=== PATIENT | female | born 2000 | race Caucasian/White ===

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

== ENCOUNTER 2019-05-22 06:33 | Emergency (ER) | payer OTHER ==
[2019-05-22] MEDS ORDERED: NS 0.9% 1000 ML** 1,000 ML IV ONE (07:19)
--- NOTE | 2019-05-22 07:20 | ED ---
Complex/Multi-Sys Presentation - HPI Summary HPI Summary: This patient is a 19 year old F presenting to [facility] with a chief complaint of epigastric tightness and itchiness since 0400 today. Pt says she felt fine okay , but attributed that to little sleep the night before. She reports slight upset stomach on 05/21/19. Last night she had a bagel. Pt also reports she woke up with nausea, and threw up. She has a BURROUGHS, lightheaded, chills and painful dry heaving. Pt had leftover Zofran, and took one and it improved her symptoms. She denies abdominal pain. Pt has PMHx Soumya Dailey tear, constipation and chronic nausea and vomiting, depression, ADHD. She has no new dosage of medicine recently. She has a FHx of chronic nausea and vomiting. Pt has lost 26 lbs in last 3 month. She went into [facility] and was told her electrolytes/ potassium was low. Symptoms aggravated by deep breaths. She also reports O2 feels thicker. She says she feels more conscious about breathing. - History Of Current Complaint Chief Complaint: EDNauseaVomitDiarrh Time Seen by Provider: 05/22/19 06:59 Hx Obtained From: Patient Onset/Duration: Sudden Onset Timing: Hours Severity Currently: None Severity Initially: Mild Location: Pain At: - epigastric Aggravating Factor(s): deep breaths Alleviating Factor(s): Zofran Associated Signs And Symptoms: Positive: Dizziness, Headache, Nausea, Vomiting, Other - Lightheadedness, Chills, Weight Loss. Negative: Abdominal Pain - Allergies/Home Medications Allergies/Adverse Reactions: Allergies Allergy/AdvReac Type Severity Reaction Status Date / Time No Known Allergies Allergy Verified 05/22/19 06:38 Home Medications: Home Medications Sertraline* [Zoloft*] 100 mg PO DAILY 05/22/19 [History Confirmed 05/22/19] PMH/Surg Hx/FS Hx/Imm Hx Endocrine/Hematology History: Denies: Hx Diabetes Respiratory History: Denies: Hx Asthma Sensory History: Denies: Hx Deafness - Cancer History Cancer Type, Location and Year: None - Surgical History Surgery Procedure, Year, and Place: Tonsillectomy. Sinus surgesry. [place] Infectious Disease History: No Infectious Disease History: Denies: Traveled Outside the [place] in Last 30 Days - Family History Known Family History: Positive: Cardiac Disease, Hypertension Family History: Brugada Syndrome - Social History Occupation: Student Lives: Dormitory/Roommates Alcohol Use: Weekly Alcohol Amount: weekends Hx Substance Use: No Substance Use Type: Reports: None Hx Tobacco Use: No Smoking Status (MU): Current Some Day Smoker Type: Smokeless Tobacco Review of Systems Positive: Chills, Fatigue, Other - weight loss Positive: Vomiting, Nausea. Negative: Abdominal Pain Neurological: Other - dizziness Positive: Headache All Other Systems Reviewed And Are Negative: Yes Physical Exam - Summary Physical Exam Summary: Appearance: Well-appearing, Well-nourished, lying in bed comfortably Skin: Warm, dry, no obvious rash Eyes: sclera anicteric, no conjunctival pallor ENT: mucous membranes moist, pharynx appears normal Neck: Supple, nontender Respiratory: Clear to auscultation, no signs of respiratory distress Cardiovascular: Normal S1, S2. No murmurs. Normal distal pulses in tibial and radial bilaterally. Abdomen: Soft, nontender, normal active bowel sounds present Musculoskeletal: Normal, Strength/ROM Intact Neurological: A&Ox3, awake and alert, mentation is normal, speech is fluent and appropriate Psychiatric: affect is normal, does not appear anxious or depressed Triage Information Reviewed: Yes Vital Signs On Initial Exam: Initial Vitals Temp Pulse Resp BP Pulse Ox 97.8 F 78 16 123/93 98 05/22/19 06:35 05/22/19 06:35 05/22/19 06:35 05/22/19 06:35 05/22/19 06:35 Vital Signs Reviewed: Yes Procedures - Sedation Patient Received Moderate/Deep Sedation with Procedure: No Diagnostics - Vital Signs Vital Signs Temp Pulse Resp BP Pulse Ox 05/22/19 06:35 97.8 F 78 16 123/93 98 - Laboratory Result Diagrams: 05/22/19 07:28 05/22/19 07:28 Lab Statement: Any lab studies that have been ordered have been reviewed, and results considered in the medical decision making process. - Radiology CXR Radiology Interpretation Completed By: Radiologist Summary of Radiographic Findings: CXR reveals, per radiologist, IMPRESSION: NO ACTIVE CARDIOPULMONARY DISEASE. ED physician has reviewed this radiology report. - EKG 0640 Cardiac Rate: NL EKG Rhythm: Sinus Rhythm Summary of EKG Findings: EKG at 0640 reveals NSR at 77 BPM, P waves, QRS complex , and T waves are within normal limits, T waves and intervals are normal, no ischemic changes. This is a normal EKG. ED Physician has reviewed and interpreted this EKG. Re-Evaluation - Re-Evaluation First Eval Re-Evaluation Time: 09:26 Comment: Discussed results and plan to discharge with pt. Complex Multi-Symp Course/Dx Course Of Treatment: This patient is a 19 year old F presenting to [facility] with a chief complaint of epigastric tightness and itchiness since 0 today. Pt says she felt fine okay, but acquitted that to little sleep the night before. She reports slight upset stomach on 05/21/19. Last night she had a bagel. Pt also reports she woke up with nausea, and threw up. She has a BURROUGHS, lightheaded, chills and painful dry heaving. Pt had leftover Zofran, and took one and it improved her symptoms. She denies abdominal pain. Pt has PMHx Soumya Dailey tear , constipation and chronic nausea and vomiting, depression, ADHD. She has no new dosage of medicine recently. She has a FHx of chronic nausea and vomiting. Pt has lost 26 lbs in last 3 month. She went into [facility] and was told her electrolytes/potassium was low. Symptoms aggravated by deep breaths. She also reports O2 feels thicker. She says she feels more conscious about breathing. Blood work obtained. MPV is 7.1, and BUN/Creatinine Ratio is 21.4. UA obtained. Urine Ketones are trace. EKG at 0640 reveals NSR at 77 BPM, P waves, QRS complex, and T waves are within normal limits, T waves and intervals are normal, no ischemic changes. This is a normal EKG. ED Physician has reviewed and interpreted this EKG. CXR reveals, per radiologist, IMPRESSION: NO ACTIVE CARDIOPULMONARY DISEASE. ED physician has reviewed this radiology report. In the ED course the patient was given fluids. Patient will be discharged. The patient is agreeable with this plan. - Diagnoses Provider Diagnoses: Nausea & vomiting Discharge ED - Sign-Out/Discharge Documenting (check all that apply): Patient Departure - Discharge - Discharge Plan Condition: Good Disposition: HOME Prescriptions: Ondansetron ODT TAB* [Zofran 4 MG Odt TAB*] 8 mg PO Q6H PRN #12 tab.odt PRN Reason: Nausea Patient Education Materials: Acute Nausea and Vomiting (ED) Forms: *School Release Referrals: [facility] [Outside] - If Needed - Billing Disposition and Condition Condition: GOOD Disposition: Home - Attestation Statements Document Initiated by Scribe: Yes Documenting Scribe: Melani Garner Provider For Whom Scribe is Documenting (Include Credential): Cliff Adler MD Scribe Attestation: Melani Tomas scribed for Cliff Adler MD on 05/24/19 at 1840. Scribe Documentation Reviewed: Yes Provider Attestation: The documentation as recorded by the Melani hudson accurately reflects the service I personally performed and the decisions made by Cliff davies MD Status of Scribe Document: Viewed
[2019-05-22 07:40] LABS: ABS Basophils 0.1 10^3/ul (0-0.2); ABS Eosinophils 0.1 10^3/ul (0-0.6); ABS Lymphocytes 2.6 10^3/ul (1.0-4.8); ABS Monocytes 0.8 10^3/ul (0-0.8); ABS Neutrophils 6.1 10^3/ul (1.5-7.7); Eosinophil % 1.3 %; Hematocrit 39 % (35-47); Hemoglobin 13.6 g/dL (12.0-16.0); Mean Corpuscular HGB Conc 35 g/dL (31-36); Mean Corpuscular Hemoglobin 31 pg (27-31); Mean Corpuscular Volume 88 fL (80-97); Mean Platelet Volume 7.1 fL (7.4-10.4); Platelet Count 423 10^3/uL (150-450); Red Blood Count 4.46 10^6 /uL (3.70-4.87); Red Cell Distribution Width 13 % (10-15); White Blood Count 9.7 10^3/uL (3.5-10.8)
[2019-05-22 07:57] LABS: Urine Appearance Cloudy; Urine Bilirubin Negative (Negative); Urine Blood Negative (Negative); Urine Color Yellow; Urine Glucose Negative (Negative); Urine Ketones Trace (Negative); Urine Nitrite Negative (Negative); Urine Protein Negative (Negative); Urine Specific Gravity 1.019 (1.010-1.030); Urine Urobilinogen Negative (Negative)
[2019-05-22 08:02] LABS: ALT 12 U/L (7-52); AST 17 U/L (13-39); Albumin/Globulin Ratio 1.9 (1-3); Alkaline Phosphatase 85 U/L (34-104); Anion Gap 9 mmol/L (2-11); BUN/Creatinine Ratio 21.4 (8-20); Blood Urea Nitrogen 18 mg/dL (6-24); C Reactive Protein 1.16 mg/L (<8.01); CO2 Carbon Dioxide 27 mmol/L (22-32); Calcium 10.1 mg/dL (8.6-10.3); Chloride 101 mmol/L (101-111); EGFR African American 104.6 (>60); EGFR Non-African American 86.4 (>60); Globulin 2.7 g/dL (2-4); Glucose 95 mg/dL (70-100); Magnesium 2.1 mg/dL (1.9-2.7); Potassium 4.3 mmol/L (3.5-5.0); Sodium 137 mmol/L (135-145); Total Protein 7.7 g/dL (6.4-8.9)
[2019-05-22 08:08] LABS: HCG Pregnancy < 0.60 mIU/mL
[2019-05-22 09:49] VITALS: BP 121/68
== END 2019-05-22 09:44 | disposition home or self-care (01) ==
LOC: ED 06:33
DX: R11.2 Nausea with vomiting, unspecified (principal); F17.200 Nicotine dependence, unspecified, uncomplicated; Z79.899 Other long term (current) drug therapy
CPT/HCPCS: 36415; 71046; 80053; 81003; 83605; 83735; 84702; 85025; 86140; 93005; 96360; 99282

== ENCOUNTER 2019-09-30 21:02 | Emergency (ER) | payer OTHER ==
[2019-09-30] MEDS ORDERED: Ketorolac INJ* 30 MG/ML 1 ML VIAL IM ONE (21:42)
--- NOTE | 2019-09-30 21:46 | UC ---
UC General HPI - HPI Summary HPI Summary: Here with friend. She is a [employer] student. about 4 hours ago developed acute onset of gross bloody urine, extreme pain with urination and lower pack pain more predominantely on the right side. Cannot get comfortable. Has had two episodes of nausea and vomiting in the past hour. Chills. NO fever. Lower abdominal pain. No vaginal discharge. Has an IUD so does not get a period Is interested in STI testing Meds; Reviewed - History of Current Complaint Stated Complaint: URINARY COMPLAINT Time Seen by Provider: 09/30/19 21:25 Hx Last Menstrual Period: iud - Allergy/Home Medications Allergies/Adverse Reactions: Allergies Allergy/AdvReac Type Severity Reaction Status Date / Time No Known Allergies Allergy Verified 05/22/19 06:38 Home Medications: Home Medications ARIPiprazole [Abilify] 2 mg PO DAILY 03/12/18 [History Confirmed 05/22/19] Levonorgestrel (Iud) [Mirena IUD] 20 mcg IU DAILY 06/08/18 [History Confirmed ] Sertraline* [Zoloft*] 100 mg PO DAILY 05/22/19 [History Confirmed 05/22/19] PMH/Surg Hx/FS Hx/Imm Hx Previously Healthy: Yes - Surgical History Surgical History: Yes Surgery Procedure, Year, and Place: Tonsillectomy. Sinus surgesry. [place] - Family History Known Family History: Positive: Cardiac Disease, Hypertension Family History: Brugada Syndrome - Social History Alcohol Use: Weekly Alcohol Amount: weekends Substance Use Type: None Smoking Status (MU): Current Some Day Smoker Type: Smokeless Tobacco - Immunization History Vaccination Up to Date: Yes Review of Systems All Other Systems Reviewed And Are Negative: Yes Gastrointestinal: Positive: Abdominal Pain, Vomiting, Nausea Genitourinary: Positive: Urgency Physical Exam Triage Information Reviewed: Yes Appearance: Other: - uncomfortable Vital Signs Reviewed: Yes Eyes: Positive: Conjunctiva Clear Respiratory: Positive: Lungs clear, Normal breath sounds Cardiovascular: Positive: RRR, No Murmur Abdomen Description: Positive: Other: - suprapubic tenderness, CVA tenderness more prominante on right side Course/Dx - Course Course Of Treatment: This is a 19 yr old with gross hematuria and sided back pain Highly suspicious for a kidney stone and possible infection Could be related to her high calcium - needs further workup and to rule out stone. Discussed we do not have CT scan here to further evaluation her symptoms U/A: gross blood and pyuria Toradol 30 mg IM given prior to discharge Plan Recommend going directly to the ER at [facility] [place] [address] to get evaluated for suspected kidney stone Would recommend they check an ionized calcium to make sure your previously elevated calcium is not related. Ketorlac 30 mg intramuscular was given prior to discharge - Diagnoses Provider Diagnosis: Kidney stone Discharge ED - Sign-Out/Discharge Documenting (check all that apply): Patient Departure All imaging exams completed and their final reports reviewed: No Studies - Discharge Plan Condition: Fair Disposition: HOME-RECOMMEND TO ED Referrals: Adry Mcallister DO [Primary Care Provider] - Additional Instructions: Recommend going directly to the ER at [facility] [address] to get evaluated for suspected kidney stone Would recommend they check an ionized calcium to make sure your previously elevated calcium is not related. Ketorlac 30 mg intramuscular was given prior to discharge - Billing Disposition and Condition Condition: FAIR Disposition: Home-Recommend to ED
[2019-09-30 22:04] VITALS: BP 120/59
== END 2019-09-30 22:05 | disposition home health service (06) ==
LOC: UCEAST 21:02
DX: N20.0 Calculus of kidney (principal); F17.290 Nicotine dependence, other tobacco product, uncomplicated
CPT/HCPCS: 81003; 84702; 87077; 87086; 87186; 96372; 99212; G0463; J1885

== ENCOUNTER 2019-09-30 22:26 | Emergency (ER) | payer OTHER ==
[2019-09-30 23:25] LABS: ABS Basophils 0.1 10^3/ul (0-0.2); ABS Eosinophils 0.2 10^3/ul (0-0.6); ABS Lymphocytes 2.7 10^3/ul (1.0-4.8); ABS Monocytes 1.2 10^3/ul (0-0.8); ABS Neutrophils 11.9 10^3/ul (1.5-7.7); Hematocrit 35 % (35-47); Hemoglobin 11.9 g/dL (12.0-16.0); Mean Corpuscular HGB Conc 34 g/dL (31-36); Mean Corpuscular Hemoglobin 30 pg (27-31); Mean Corpuscular Volume 89 fL (80-97); Mean Platelet Volume 7.2 fL (7.4-10.4); Platelet Count 383 10^3/uL (150-450); Red Blood Count 3.97 10^6 /uL (3.70-4.87); Red Cell Distribution Width 14 % (10-15)
[2019-09-30] MEDS ORDERED: Morphine 4 MG/ML VIAL (1 ml) 4 MG/ML VIAL IV ONE (23:25)
[2019-09-30] MEDS ORDERED: NS 0.9% 1000 ML** 1,000 ML IV ONE (23:25)
--- NOTE | 2019-09-30 23:28 | ED ---
GI/ HPI - HPI Summary HPI Summary: 19 year old female presents with flank pain today. States she's been having UTI symptoms for the past day. She admits to urgency, frequency and dysuria. She's been having hematuria. States that her abdominal pain greatest in the lower abdomen. Denies any history of UTIs. States she has history of chronic sinusitis and was on Augmentin last month. States she is normally resistant to Augmentin. He states that she is having intermittent vomiting of blood and blood in her stool that is currently being worked up before. She states that 2 years ago they thought she had a kidney stones as she had blood in her urine. - History of Current Complaint Chief Complaint: EDFlankPain Time Seen by Provider: 09/30/19 23:14 Stated Complaint: BLOOD IN URINE BODY ACHE Hx Last Menstrual Period: iud Pain Intensity: 7 - Allergy/Home Medications Allergies/Adverse Reactions: Allergies Allergy/AdvReac Type Severity Reaction Status Date / Time No Known Allergies Allergy Verified 09/30/19 23:40 Home Medications: Home Medications ARIPiprazole [Abilify] 2 mg PO DAILY 03/12/18 [History Confirmed 10/01/19] Levonorgestrel (Iud) [Mirena IUD] 20 mcg IU DAILY 06/08/18 [History Confirmed ] Sertraline* [Zoloft*] 100 mg PO DAILY 05/22/19 [History Confirmed 09/30/19] Dextroamphetamine/Amphetamine [Adderall 10 mg-] 1 tab PO DAILY 09/30/19 [ History Confirmed 09/30/19] Spironolactone [Aldactone 100 MG-] 200 mg PO DAILY 09/30/19 [History Confirmed 09/30/19] traZODone TAB* [Desyrel TAB*] 50 mg PO BEDTIME 09/30/19 [History Confirmed 09/29] Amphetamine MIXED SALT TAB* [Adderall TAB*] 10 mg PO BID PRN 10/01/19 [History Confirmed 10/01/19] Phenazopyridine 200 mg (NF) [Pyridium 200 MG tab *] 200 mg PO TID #5 tab [Rx] Sulfamethox/Trimethoprim DS* [Bactrim DS 800/160 TAB*] 1 tab PO BID #13 tab 03/ 09/20 [Rx] PMH/Surg Hx/FS Hx/Imm Hx Endocrine/Hematology History: Denies: Hx Diabetes Respiratory History: Denies: Hx Asthma Sensory History: Denies: Hx Deafness - Cancer History Cancer Type, Location and Year: None - Surgical History Surgery Procedure, Year, and Place: Tonsillectomy. Sinus surgesry. [place] Infectious Disease History: No Infectious Disease History: Denies: Traveled Outside the [place] in Last 30 Days - Family History Known Family History: Positive: Cardiac Disease, Hypertension Family History: Brugada Syndrome - Social History Alcohol Use: Weekly Alcohol Amount: weekends Hx Substance Use: No Substance Use Type: Reports: None Substance Use Comment - Amount & Last Used: occasionally Hx Tobacco Use: No Smoking Status (MU): Current Some Day Smoker Type: Smokeless Tobacco Review of Systems Negative: Fever Negative: Chest Pain Negative: Shortness Of Breath Positive: Abdominal Pain, Vomiting, Nausea. Negative: Diarrhea Positive: dysuria, frequency, flank pain All Other Systems Reviewed And Are Negative: Yes Physical Exam Triage Information Reviewed: Yes Vital Signs On Initial Exam: Initial Vitals Temp Pulse Resp BP Pulse Ox 98.1 F 75 15 127/73 100 09/30/19 22:29 09/30/19 22:29 09/30/19 22:29 09/30/19 22:29 09/30/19 22:29 Vital Signs Reviewed: Yes Appearance: Positive: Well-Appearing Skin: Positive: Warm, Dry Head/Face: Positive: Normal Head/Face Inspection Eyes: Positive: Normal, Conjunctiva Clear ENT: Positive: Pharynx normal Respiratory/Lung Sounds: Positive: Clear to Auscultation, Breath Sounds Present Cardiovascular: Positive: Normal, RRR Abdomen Description: Positive: Soft, CVA Tenderness (R), CVA Tenderness (L), Other: - diffuse tenderness greatest suprapubic Bowel Sounds: Positive: Present Musculoskeletal: Positive: Normal Neurological: Positive: Normal Psychiatric: Positive: Normal Procedures - Sedation Patient Received Moderate/Deep Sedation with Procedure: No Diagnostics - Vital Signs Vital Signs Temp Pulse Resp BP Pulse Ox 09/30/19 22:29 98.1 F 75 15 127/73 100 - Laboratory Lab Results: Lab Results 09/30/19 Range/Units 23:18 WBC 16.0 H (3.5-10.8) 10^3/uL RBC 3.97 (3.70-4.87) 10^6 /uL Hgb 11.9 L (12.0-16.0) g/dL Hct 35 (35-47) % MCV 89 (80-97) fL MCH 30 (27-31) pg MCHC 34 (31-36) g/dL RDW 14 (10-15) % Plt Count 383 (150-450) 10^3/uL MPV 7.2 L (7.4-10.4) fL Neut % (Auto) 74.0 % Lymph % (Auto) 17.0 % Pierce % (Auto) 7.6 % Eos % (Auto) 1.0 % Baso % (Auto) 0.4 % Absolute Neuts (auto) 11.9 H (1.5-7.7) 10^3/ul Absolute Lymphs (auto) 2.7 (1.0-4.8) 10^3/ul Absolute Monos (auto) 1.2 H (0-0.8) 10^3/ul Absolute Eos (auto) 0.2 (0-0.6) 10^3/ul Absolute Basos (auto) 0.1 (0-0.2) 10^3/ul Absolute Nucleated RBC 0.0 10^3/ul Nucleated RBC % 0.0 Result Diagrams: 09/30/19 23:18 09/30/19 23:18 Lab Statement: Any lab studies that have been ordered have been reviewed, and results considered in the medical decision making process. - CT abd CT Interpretation Completed By: Radiologist Summary of CT Findings: IMPRESSION: 1. No CT findings to correlate with patient' s symptomatology. Well-positioned IUD. 2. Simple left ovarian cyst. No followup imaging indicated per ACR guidelines. Re-Evaluation - Re-Evaluation First Eval Re-Evaluation Time: 00:45 Change: Improved Comment: pain resolved GIGU Course/Dx - Course Course Of Treatment: 19 year old female presents with flank pain today. States she's been having UTI symptoms for the past day. She admits to urgency, frequency and dysuria. She's been having hematuria. States that her abdominal pain greatest in the lower abdomen. Denies any history of UTIs. States she has history of chronic sinusitis and was on Augmentin last month. States she is normally resistant to Augmentin. He states that she is having intermittent vomiting of blood and blood in her stool that is currently being worked up before. She states that 2 years ago they thought she had a kidney stones as she had blood in her urine. On exam she has bilateral flank pain greatest on the right side and suprapubic pain. White blood count 16. Urine at urgent care showed a UTI. CRP is normal. afebrile. CT shows no acute findings. Gave dosed Rocephin. Will place on Bactrim. gave pyridium for pain. told follow- up [facility]. patient understand and agrees with plan. - Diagnoses Differential Diagnoses - Female: Pyelonephritis, Urinary Tract Infection, Ureteral Calculi Provider Diagnoses: UTI (urinary tract infection), Flank pain Discharge ED - Sign-Out/Discharge Documenting (check all that apply): Patient Departure - Discharge Plan Condition: Good Disposition: HOME Prescriptions: Phenazopyridine 200 mg (NF) [Pyridium 200 MG tab *] 200 mg PO TID #5 tab Sulfamethox/Trimethoprim DS* [Bactrim DS 800/160 TAB*] 1 tab PO BID #13 tab Patient Education Materials: Urinary Tract Infection in Women (ED) Forms: *School Release Referrals: Adry Mcallister DO [Primary Care Provider] - Additional Instructions: Take Bactrim twice a day for 5 days, first dose given in ED Take pyridium two tablets three times a day with food for 2 days, first dose given in ED drink plenty of fluids take tyenlol or ibuprofen every 6 hours for pain Follow up with primary in 7 days Return to ED if develop any new or worsening symptoms - Billing Disposition and Condition Condition: GOOD Disposition: Home
[2019-09-30 23:42] LABS: Albumin 4.2 g/dL (3.2-5.2); Albumin/Globulin Ratio 1.8 (1-3); BUN/Creatinine Ratio 11.5 (8-20); C Reactive Protein 5.28 mg/L (<8.01); Calcium 9.4 mg/dL (8.6-10.3); EGFR African American 113.9 (>60); EGFR Non-African American 94.2 (>60); Globulin 2.4 g/dL (2-4); Potassium 3.8 mmol/L (3.5-5.0); Total Bilirubin 0.6 mg/dL (0.2-1.0); Total Protein 6.6 g/dL (6.4-8.9)
[2019-09-30] MEDS ORDERED: Ondansetron INJ* 2 MG/ML VIAL IV ONE (23:53)
[2019-09-30] MEDS ORDERED: Ondansetron INJ* 2 MG/ML VIAL ONE (23:54)
[2019-10-01] MEDS ORDERED: cefTRIAXone(*) 1 GM in NS 0.9% 50 ML* 50 ML IVPB ONE (00:36)
[2019-10-01] MEDS ORDERED: Phenazopyridine TAB* 100 MG PO ONE (00:46)
[2019-10-01] MEDS ORDERED: Sulfamethox/Trimethoprim DS 800/160* TAB PO ONE (00:46)
[2019-10-01 01:01] VITALS: BP 118/68
== END 2019-10-01 00:58 | disposition home or self-care (01) ==
LOC: ED 22:26
DX: N39.0 Urinary tract infection, site not specified (principal); R31.9 Hematuria, unspecified; R10.30 Lower abdominal pain, unspecified; N83.292 Other ovarian cyst, left side; Z97.5 Presence of (intrauterine) contraceptive device; Z72.0 Tobacco use
CPT/HCPCS: 36415; 74176; 80053; 85025; 86140; 96361; 96365; 96375; 99283; J0696; J2270; J2405

== ENCOUNTER 2019-10-02 14:50 | Inpatient (IN) | payer OTHER ==
[2019-10-02 16:30] LABS: Urine Appearance Clear; Urine Bilirubin Negative (Negative); Urine Blood Negative (Negative); Urine Color Yellow; Urine Glucose Negative (Negative); Urine Ketones Negative (Negative); Urine Nitrite Negative (Negative); Urine Protein Negative (Negative); Urine Specific Gravity 1.012 (1.010-1.030); Urine Urobilinogen Negative (Negative)
[2019-10-02 16:40] LABS: ABS Eosinophils 0.1 10^3/ul (0-0.6); ABS Lymphocytes 1.4 10^3/ul (1.0-4.8); ABS Monocytes 0.7 10^3/ul (0-0.8); Eosinophil % 0.7 %; Hematocrit 33 % (35-47); Hemoglobin 11.2 g/dL (12.0-16.0); Lymphocyte % 17.4 %; Mean Corpuscular HGB Conc 34 g/dL (31-36); Mean Corpuscular Hemoglobin 30 pg (27-31); Mean Corpuscular Volume 90 fL (80-97); Mean Platelet Volume 7.3 fL (7.4-10.4); Nucleated Red Blood Cells % 0.1; Platelet Count 313 10^3/uL (150-450); Red Blood Count 3.69 10^6 /uL (3.70-4.87); Red Cell Distribution Width 14 % (10-15); White Blood Count 8.3 10^3/uL (3.5-10.8)
--- NOTE | 2019-10-02 16:46 | ED ---
GI/ HPI - HPI Summary HPI Summary: Patient complains of fever up to 102 today, nausea and vomiting, diffuse abdominal pain, right flank pain, with urination, sweats. Patient seen on 09/29 for same symptoms diagnosed with UTI, started on Bactrim. Patient states she is intermittently able to tolerate Bactrim due to nausea and vomiting. Symptoms are persistent. Patient also states possible yellow vaginal discharge. Sent by [facility] to the ED for further evaluation. Denies cough, sore throat, CP, SOB, change in BM, vaginal pain or bleeding. Patient has IUD. Sexually active. Medical history is none. - History of Current Complaint Chief Complaint: EDUrogenitalProblems Time Seen by Provider: 10/02/19 16:40 Stated Complaint: UTI/FEVER PER PT Hx Obtained From: Patient Hx Last Menstrual Period: iud Onset/Duration: Started Days Ago Timing: Constant Severity: Moderate Current Severity: Moderate Pain Intensity: 5 Pain Characteristics: Aching Associated Signs and Symptoms: Positive: Nausea, Vomiting, Dysuria, Abdominal Pain Aggravating Factor(s): Food - Allergy/Home Medications Allergies/Adverse Reactions: Allergies Allergy/AdvReac Type Severity Reaction Status Date / Time No Known Allergies Allergy Verified 10/02/19 15:13 Home Medications: Home Medications Levonorgestrel (Iud) [Mirena IUD] 20 mcg IU DAILY 06/08/18 [History Confirmed ] Sertraline* [Zoloft*] 100 mg PO DAILY 05/22/19 [History Confirmed 10/02/19] Spironolactone [Aldactone 100 MG-] 200 mg PO DAILY 09/30/19 [History Confirmed 10/02/19] traZODone TAB* [Desyrel TAB*] 50 mg PO BEDTIME 09/30/19 [History Confirmed 10/01] Phenazopyridine 200 mg (NF) [Pyridium 200 MG tab *] 200 mg PO TID #5 tab [Rx Confirmed 10/02/19] Sulfamethox/Trimethoprim DS* [Bactrim DS 800/160 TAB*] 1 tab PO BID #13 tab 04/13 [Rx Confirmed 10/02/19] ARIPiprazole TAB* [Abilify 2 MG TAB*] 2 mg PO DAILY 10/02/19 [History Confirmed 10/02/19] Amphetamine MIXED SALT TAB* [Adderall TAB*] 10 mg PO DAILY 10/02/19 [History Confirmed 10/02/19] LORazepam TAB(*) [Ativan 0.5 MG TAB (*)] 0.5 mg PO DAILY PRN 10/02/19 [History Confirmed 10/02/19] PMH/Surg Hx/FS Hx/Imm Hx Endocrine/Hematology History: Denies: Hx Diabetes Cardiovascular History: Denies: Hx Pacemaker/ICD Respiratory History: Denies: Hx Asthma, Hx Chronic Obstructive Pulmonary Disease (COPD) History: Denies: Hx Dialysis Sensory History: Denies: Hx Deafness Opthamlomology History: Denies: Hx Legally Blind EENT History: Denies: Hx Hearing Aid - Cancer History Cancer Type, Location and Year: None - Surgical History Surgery Procedure, Year, and Place: Tonsillectomy. Sinus surgesry. [place] Infectious Disease History: No Infectious Disease History: Denies: Traveled Outside the [place] in Last 30 Days - Family History Known Family History: Positive: Cardiac Disease, Hypertension Family History: Brugada Syndrome - Social History Alcohol Use: Occasionally Alcohol Amount: weekends Hx Substance Use: No Substance Use Type: Reports: Marijuana Substance Use Comment - Amount & Last Used: occasionally Hx Tobacco Use: No Smoking Status (MU): Never Smoked Tobacco Type: Smokeless Tobacco Review of Systems Positive: Fever Eyes: Negative ENT: Negative Cardiovascular: Negative Respiratory: Negative Positive: Abdominal Pain, Vomiting, Nausea Positive: dysuria, discharge, flank pain Musculoskeletal: Negative Skin: Negative Neurological/Mental Status: Negative Psychological: Normal All Other Systems Reviewed And Are Negative: Yes Physical Exam Triage Information Reviewed: Yes Vital Signs On Initial Exam: Initial Vitals Temp Pulse Resp BP Pulse Ox 98.7 F 87 16 116/64 99 10/02/19 15:07 10/02/19 15:07 10/02/19 15:07 10/02/19 15:07 10/02/19 15:07 Vital Signs Reviewed: Yes Appearance: Positive: Well-Appearing Skin: Positive: Warm Head/Face: Positive: Normal Head/Face Inspection Eyes: Positive: Normal Neck: Positive: Supple Respiratory/Lung Sounds: Positive: Clear to Auscultation Cardiovascular: Positive: Normal Abdomen Description: Positive: Other: - Palpation right lower quadrant, right upper quadrant and epigastrium. Pelvic Exam: Positive: External Exam Normal, No Masses, Discharge - Thick yellow -white discharge, Tender w/ Cervical Motion, Tender Adnexa. Negative: Blood, Lesions, Mass Musculoskeletal: Positive: Normal Neurological: Positive: Normal Psychiatric: Positive: Normal AVPU Assessment: Alert - Bronson Coma Scale Best Eye Response: 4 - Spontaneous Best Motor Response: 6 - Obeys Commands Best Verbal Response: 5 - Oriented Coma Scale Total: 15 Procedures - Sedation Patient Received Moderate/Deep Sedation with Procedure: No Diagnostics - Vital Signs Vital Signs Temp Pulse Resp BP Pulse Ox 10/02/19 15:08 98.2 F 63 16 116/64 98 10/02/19 15:07 98.7 F 87 16 116/64 99 - Laboratory Lab Results: Lab Results 10/02/19 10/02/19 Range/Units 15:58 16:28 WBC 8.3 (3.5-10.8) 10^3/uL RBC 3.69 L (3.70-4.87) 10^6 /uL Hgb 11.2 L (12.0-16.0) g/dL Hct 33 L (35-47) % MCV 90 (80-97) fL MCH 30 (27-31) pg MCHC 34 (31-36) g/dL RDW 14 (10-15) % Plt Count 313 (150-450) 10^3/uL MPV 7.3 L (7.4-10.4) fL Neut % (Auto) 73.1 % Lymph % (Auto) 17.4 % [place]hen[place] % (Auto) 8.3 % Eos % (Auto) 0.7 % Baso % (Auto) 0.5 % Absolute Neuts (auto) 6.0 (1.5-7.7) 10^3/ul Absolute Lymphs (auto) 1.4 (1.0-4.8) 10^3/ul Absolute Monos (auto) 0.7 (0-0.8) 10^3/ul Absolute Eos (auto) 0.1 (0-0.6) 10^3/ul Absolute Basos (auto) 0.0 (0-0.2) 10^3/ul Absolute Nucleated RBC 0.0 10^3/ul Nucleated RBC % 0.1 Urine Color Yellow Urine Appearance Clear Urine pH 7.0 (5-9) Ur Specific [place] 1.012 (1.010-1.030) Urine Protein Negative (Negative) Urine Ketones Negative (Negative) Urine Blood Negative (Negative) Urine Nitrate Negative (Negative) Urine Bilirubin Negative (Negative) Urine Urobilinogen Negative (Negative) Ur Leukocyte Esterase Negative (Negative) Urine Glucose Negative (Negative) Result Diagrams: 10/02/19 16:28 10/02/19 16:28 Lab Statement: Any lab studies that have been ordered have been reviewed, and results considered in the medical decision making process. GIGU Course/Dx - Course Course Of Treatment: Patient complains of fever up to 102 today, nausea and vomiting, diffuse abdominal pain, right flank pain, with urination, sweats. Patient seen on 09/29 for same symptoms diagnosed with UTI, started on Bactrim. Patient states she is intermittently able to tolerate Bactrim due to nausea and vomiting. Symptoms are persistent. Patient also states possible yellow vaginal discharge. Sent by [facility] to the ED for further evaluation. Denies cough, sore throat, CP, SOB, change in BM, vaginal pain or bleeding. Patient has IUD. Sexually active. Medical history is none. Last antipyretic taken at noon. Patient bradycardic which is new onset compared to prior vital signs. Vital signs otherwise within normal limits. CRP 32. Labs otherwise unremarkable. Urine negative. Transvaginal ultrasound positive for left ovarian cyst. Ultrasound gallbladder suspicious for acalculous cholecystitis. Pelvic swab cultures pending. Admitted to hospitalist. - Diagnoses Provider Diagnoses: Acalculous cholecystitis, Left ovarian cyst, Nausea & vomiting, Fever, Dysuria , Bradycardia, Vaginal discharge, Vaginitis Discharge ED - Sign-Out/Discharge Documenting (check all that apply): Patient Departure - Discharge Plan Condition: Stable Disposition: ADMITTED TO [facility] - Billing Disposition and Condition Condition: STABLE Disposition: Admitted to [facility] - Attestation Statements Provider Attestation: I was available for consultation for this patient. I did not evaluate the patient, or participate in any medical decision making or disposition decisions unless I am specifically named in the chart as having consulted on the patient. If I have consulted on the patient, please see my own ED note on the patient encounter. Lavern Roach MD
[2019-10-02 16:58] LABS: ALT 13 U/L (7-52); AST 17 U/L (13-39); Albumin/Globulin Ratio 1.7 (1-3); Alkaline Phosphatase 79 U/L (34-104); Anion Gap 5 mmol/L (2-11); BUN/Creatinine Ratio 7.3 (8-20); Blood Urea Nitrogen 6 mg/dL (6-24); C Reactive Protein 32.93 mg/L (<8.01); CO2 Carbon Dioxide 26 mmol/L (22-32); Calcium 9.5 mg/dL (8.6-10.3); Chloride 106 mmol/L (101-111); EGFR African American 107.5 (>60); EGFR Non-African American 88.9 (>60); Globulin 2.4 g/dL (2-4); Glucose 102 mg/dL (70-100); Potassium 4.4 mmol/L (3.5-5.0); Sodium 137 mmol/L (135-145); Total Protein 6.4 g/dL (6.4-8.9)
[2019-10-02] MEDS ORDERED: Morphine 4 MG/ML VIAL (1 ml) 4 MG/ML VIAL IV ONE ×2 (17:14→20:12)
[2019-10-02] MEDS ORDERED: Ondansetron INJ* 2 MG/ML VIAL IV ONE ×2 (17:14→22:41)
[2019-10-02] MEDS ORDERED: NS 0.9% 1000 ML** 1,000 ML IV ONE (17:14)
[2019-10-02] MEDS ORDERED: cefTRIAXone(*) 1 GM in NS 0.9% 50 ML* 50 ML IVPB ONE (17:39)
[2019-10-02] MEDS ORDERED: Piperacillin/Tazobac ADVAN(*) 3.375 GM in NS 0.9% 100 ML* 100 ML IVPB ONE (20:12)
[2019-10-02] MEDS ORDERED: diPHENhydraMINE IV* 50 MG/ML 1 ml VIAL (BENADRYL) IV ONE (21:30)
[2019-10-02 22:39] LABS: HCG Pregnancy < 0.60 mIU/mL
[2019-10-02] MEDS ORDERED: NS 0.9% 1000 ML** 1,000 ML IV SCH (23:45)
[2019-10-03] MEDS ORDERED: Zosyn 3.375 GM IV - ED ONCE IVPB ONE ×2 (01:00)
--- NOTE | 2019-10-03 01:23 | CONS ---
SURGICAL CONSULTATION NOTE: DATE OF CONSULT: 10/02/19 REASON FOR CONSULT: Abdominal pain and gallbladder wall thickening on ultrasound. HISTORY OF PRESENT ILLNESS: This is a 19-year-old female with history of anxiety/depression, anorexia, UTI, chronic nausea, gastroesophageal reflux disease, who states that she was in her usual state of health until 6 days ago when she developed an episode of emesis yellow green with blood streaking. She had not eaten breakfast and the emesis occurred around lunch time. She presented to the [facility] where she had evaluation and was discharged back to home with instruction to follow up in a week. 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 for nausea. She took that as well as some Tums. She was instructed to take Prilosec as well, which she started on . She reports that while she normally has 1 bowel movement every 2 to 3 days, she started having at least 3 bowel movements a day on . She describes green poorly formed stools, not totally liquid. She felt extreme fatigue and reports she spent much of her time in bed, although she does report trying to eat and drink and not having any additional episodes of emesis but definitely nausea. She states that she went out to [facility] [place] on Tuesday night, but she states she did not drink any alcohol or use any drugs. She states that then on Tuesday she began having again some blood streak vomiting but also had cranberry colored urine and presented to [facility] and from there was referred to the [facility]. At that time, she underwent a CT with no contrast evaluate for kidney stone. The CT scan dated 09/30/19 reported no stones, simple ovarian cyst 4 cm, an IUD and normal-appearing liver; gallbladder , pancreas, spleen, stomach, intestine and appendix is normal. She was treated with a dose of intravenous antibiotic and then discharged on Bactrim. Also of note on that admission her WBCs were 16,000. After discharge, she states she took 1 dose of the Bactrim yesterday but then subsequent doses that she tried to take resulted in nausea, vomiting, and she had essentially dry heaves, was not tolerating even water. She does state at this point she is hungry. She indicates pain in the right flank and right flank tenderness, also pain across the abdomen from the pelvis up to the right upper quadrant in a C-shape. She reports that she is sexually active that she frequently gets yeast infections and reports no changes in vaginal discharge. The patient presented to the emergency room today with complaints of fevers, which she has had for the past couple of days off and on, at times to 102. Ongoing right flank pain, pain with urination as well as abdominal pain as stated above. Upon evaluation in the emergency room, she was noted to have no fever. Her laboratory work was normal with WBCs of 8, no shift. BMP was normal with no LFT abnormalities. CRP was elevated at 30. Her lipase was less than 10. She underwent a transvaginal ultrasound, which demonstrated the previously noted left ovarian cyst and some free fluid in the pelvis. She also underwent an ultrasound of the gallbladder, which revealed a gallbladder without any evidence of gallstones. She had evidence of thickening 12 mm with some pericholecystic fluid and a positive sonographic Ruby sign with suspicion for cholecystitis. She was also noted to have a mass in the liver 1.5 cm for which additional evaluation with imaging was recommended. PAST MEDICAL HISTORY: Significant for anxiety/depression, anorexia, gastroesophageal reflux disease, chronic nausea, history of UTI in the past. Also significant for chronic sinusitis. PAST SURGICAL HISTORY: Significant for sinus surgery and tonsillectomy. MEDICATIONS: 1. Spironolactone. 2. Ativan. 3. Amphetamine. 4. Abilify. 5. Sertraline. 6. Trazodone. 7. Bactrim. 8. Pyridium. 9. Medical marijuana. ALLERGIES: None known. FAMILY HISTORY: Father has Brugada syndrome. Mother is alive and well. She has a twin brother, who is alive and well. 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 She denies tobacco use. She reports alcohol use averaging 6 alcoholic beverages a day. She denies IV drug use. REVIEW OF SYSTEMS: Fourteen point review of systems was completed and significant for the above mentioned positives and negatives, otherwise was negative. PHYSICAL EXAM: Temperature was 98.2, blood pressure 118/79, pulse is 62, respirations 18, O2 sat 99%. Head: Normocephalic and atraumatic. Sclerae anicteric. Mucous membranes are moist. There is no otorrhea or rhinorrhea. She appears mildly flushed. Her neck is symmetrical. Trachea is midline. No palpable lymphadenopathy or masses. Her lungs clear bilaterally without wheezes , rales, or rhonchi. Heart is regular. S1 and S2. Abdomen is without scars. It is tender with some guarding in the right greater than left lower quadrant. She also has right upper quadrant tenderness and she has costovertebral angle tenderness on the right side. Extremities are warm without cyanosis, clubbing, or edema. DIAGNOSTIC STUDIES/LAB DATA: WBCs 8.3, hemoglobin 11.2, hematocrit 33, platelets 313. Chemistries: Sodium 137, potassium 4.4, chloride 106, bicarb 26 , BUN 6, creatinine 0.82, glucose is 102, lactate 0.6. Total bili 0.5, AST 17, ALT 13, alk phos 79, CRP 32, albumin 4, lipase less than 10. Urinalysis shows clear yellow urine with specific gravity of 1.012 and otherwise negative findings. Her prior urine culture from 09/30/19 shows E. coli. IMPRESSION: A 19-year-old female with longstanding history of gastroesophageal reflux disease and nausea with recent Escherichia coli urinary tract infection and incomplete treatment with antibiotics due to poor tolerance of oral antibiotics, now presenting with fevers, right flank pain as well as abdominal pain, right lower quadrant greater than left as well as right upper quadrant pain. The concern for inadequately treated Escherichia coli infection may explain her symptomatology. I suspect that the findings on the ultrasound, the gallbladder wall thickening could be secondary to an acalculous cholecystitis based on urosepsis. This does not require urgent surgical intervention and antibiotics have already been initiated. PLAN/RECOMMENDATION: The patient should be admitted to the hospital for IV antibiotics due to her recent history of vomiting blood. I would limit her oral intake to clear liquids. She is going to complete pelvic examination as well as additional workup as discussed with ER staff and surgical associates will follow. I also discussed the situation and plan with the patient's mother, who was at bedside. [id number] #: [id number] [id number]
[2019-10-03] MEDS: Ondansetron INJ* 2 MG/ML VIAL IV PRN ×5 (02:11→21:52)
[2019-10-03] MEDS: traZODone TAB* 50 MG TAB PO SCH ×2 (02:22→21:51)
[2019-10-03] MEDS ORDERED: Morphine INJ* 4 MG/ML 1 ML SYRINGE (NEW SYRINGE VERSION) ONE (02:47)
[2019-10-03] MEDS: Morphine INJ* 4 MG/ML 1 ML SYRINGE (NEW SYRINGE VERSION) IV PRN ×5 (02:48→21:52)
[2019-10-03] MEDS: Piperacillin/Tazobac ADVAN(*) 3.375 GM in NS 0.9% 100 ML* 100 ML IVPB SCH ×3 (05:22→21:57)
[2019-10-03] MEDS: Sertraline* 100 MG TAB PO SCH ×2 (09:50→12:10)
[2019-10-03] MEDS: Amphetamine MIXED SALT TAB* 10 MG TAB PO SCH ×2 (09:50→12:10)
[2019-10-03] MEDS: ARIPiprazole TAB* 2 MG PO SCH ×2 (09:50→12:10)
[2019-10-03 12:20] LABS: Magnesium 1.9 mg/dL (1.9-2.7)
[2019-10-03 13:07] LABS: TSH (Thyroid Stimulating Horm) 1.05 mcIU/mL (0.34-5.60)
[2019-10-03 13:09] LABS: Free T4 0.97 ng/dL (0.61-1.12)
--- NOTE | 2019-10-03 14:13 | HP ---
HISTORY AND PHYSICAL: DATE OF ADMISSION: 10/02/19 HISTORY OF PRESENT ILLNESS: This is a 19-year-old female with past medical history significant for anxiety and depression, GERD, who presented to the ED with nausea and vomiting, abdominal pain, and fever. The patient was seen in the ED and treated for UTI and was started on Bactrim after giving a dose of IV antibiotic and sent home. The patient stated she was taking the antibiotics but she could not tolerate very well due to nausea and vomiting. They stated that her urine which was colored before has become more clearer with less painful urination. She stated after the she received in the ED , she spiked fever again. 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 Of note was CT findings when she was treated prior to this visit. CT findings of 09/30/19 reported no stones, but there was positive ovarian cyst measuring about 4 cm and the IUD in place. She stated that she was discharged on Bactrim. She came back because of worsening abdominal pain, mostly on the right flank and worsening nausea and vomiting. In the ED, her temperature was noted at 102 with increasing right flank pain and right upper quadrant pain. She denied any chest pain, headache, diarrhea, or constipation. Ultrasound of the abdomen was positive for pericholecystic fluid and evidence of thickening of the gallbladder of 2 mm with positive sonographic Ruby sign with suspicion for cholecystitis and also noted was a mass in the liver, measuring 1.5 cm for which additional evaluation with imaging is recommended. The patient stated that she is sexually active and has recurrent yeast infections. PAST MEDICAL HISTORY: Includes: 1. GERD. 2. History of UTI. 3. Sinusitis. 4. Anxiety. 5. Depression. PAST SURGICAL HISTORY: 1. Tonsillectomy. 2. Sinus surgery. CURRENT MEDICATIONS: Include: 1. Sertraline 100 mg p.o. daily. 2. Aldactone 200 mg p.o. daily. 3. Trazodone 50 mg p.o. at bedtime. 4. Pyridium 200 mg p.o. t.i.d. 5. Abilify 2 mg p.o. daily. 6. Amphetamine for ADHD 10 mg p.o. daily. 7. Lorazepam 0.5 mg p.o. daily p.r.n. ALLERGIES: No known drug allergies. FAMILY HISTORY: Has a twin brother who is alive and well. Mother is alive and well. Father has Brugada syndrome. SOCIAL HISTORY: She is a student at [employer]. She denies use of tobacco products. She admitted to alcohol use on weekends, averaging about 4 to 6 alcoholic drinks every weekend. She denied use of illicit drugs. REVIEW OF SYSTEMS: A 14-point review of systems was completed and significant for as listed in the HPI, otherwise negative. PHYSICAL EXAMINATION VITAL SIGNS: Temperature 98.2, pulse 62, respiratory rate 18, O2 saturation 99% , blood pressure 118/79. HEENT: Normocephalic, atraumatic. Sclerae anicteric. Mucous membranes moist. No rhinorrhea. NECK: Supple. Trachea is midline. No lymphadenopathy. LUNGS: Clear to auscultation. No wheezing, no rales or rhonchi. CARDIOVASCULAR: S1, S2 heard. Regular rate and rhythm. No murmurs, no gallops. No friction. ABDOMEN: Soft, nontender, nondistended. Mild guarding and right flank tenderness and right upper quadrant tenderness. Also CVA tenderness on the right. EXTREMITIES: Warm. No cyanosis, no clubbing, no edema. Positive Ruby sign. DIAGNOSTIC STUDIES/LAB DATA: WBC 8.3, hemoglobin 11.2, hematocrit 33, platelet 313. Blood chemistry: Sodium 137, potassium 4.4, chloride 106, bicarbonate 26, BUN 6, creatinine 0.82, glucose 102, lactate 0.6, total bilirubin 0.5, ALT 13, AST 17, alkaline phosphatase 79, CRP 32, albumin 4, lipase 11. Urinalysis shows clear yellow urine with specific gravity of 1.012, leukocyte esterase negative, nitrites negative. Urine of 09/30/19, positive for E. coli. The patient had been on antibiotics, this may explain why the second urine is negative. 1. Ultrasound report: No visible gallbladder sludge or cholelithiasis, but the gallbladder wall is thickened measuring up to 2 mm thickness with pericholecystic fluid and positive sonographic Ruby sign suspicious for acalculous cholecystitis. 2. 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 This mass was not clearly visible on the prior noncontrast CT and appears indeterminate, may be more accurately assessed with dedicated CT or MRI of the liver. 3. Transvaginal ultrasound, impression: There is a simple appearing cyst over the left ovary measuring a maximum of 4.2 cm, no followup imaging necessary. There is a second smaller simple cyst on the left ovary measuring a maximum of 1.3 cm. There is a small volume of free fluid in the pelvis and bilateral adnexa , greater on the left than on the right, cannot exclude ovarian cyst rupture. ASSESSMENT AND PLAN: A 19-year-old female with a history of anxiety, depression , recurrent urinary tract infection, and gastroesophageal reflux disease, presented with nausea, vomiting, severe right flank pain, and right upper quadrant pain with sonographic evidence of acalculous cholecystitis. The patient will be admitted to the medical floor with surgical consult. The patient will be kept n.p.o., continue IV fluid hydration. We will start the patient on IV antibiotics Zosyn 3.375 g q.8 another 4 hours. I would recommend HIDA scan and follow up with surgery consult. Followup a.m. labs, pain control. Urinary tract infection. The patient has been treated for urinary tract infection but did not complete treatment due to nausea and vomiting. Of note, the current IV antibiotics will cover for urinary tract infection if it is not fully cleared. Anxiety and depression. The patient is to continue with her home meds; sertraline, Abilify, and Ativan p.r.n. For attention deficit hyperactivity disorder, the patient to continue with amphetamine. DVT prophylaxis: SCDs. The patient is ambulating very well. Code status: Full code. Fluids and electrolytes: Will be repleted as needed. Nutrition: The patient is n.p.o. for now, but will be on a regular diet as tolerated. TIME SPENT: Time spent on this admission was 60 minutes, greater than half of that time was spent [id number] with the patient obtaining my history and physical, the other half of the time was spent going over the plan of care with the patient and implementing plan of care. Thank you very much for the opportunity to partake in the health care needs of this lizet lady. [id number]/CPS #: [id number] TONY
[2019-10-03 14:16] LABS: Chlamydia trachomatis NAA Negative (Negative); Neisseria gonorrhoeae (GC) NAA Negative (Negative)
[2019-10-03 14:26] LABS: Trichomonas vag NAA Female Negative (Negative)
--- NOTE | 2019-10-03 15:07 | PN ---
Subjective Date of Service: 10/03/19 Interval History: Patient seen today, in the morning and later this afternoon. Patient herself appears to be very comfortable. Awake. resting no distress. She is questioning regarding her gallbladder and removal. I consulted with Dr Davila from surgery, and initially it was thought that she may have acalaculous cholecystitis. Hida scan ordered and was unremarkable with normal uptake and execretion of tracer. Discussed with Dr. Cruz and cleared her for surgery Past Medical History: Unchanged from Admission Objective Active Medications: Acetaminophen (Tylenol Tab*) 650 mg PO Q4H PRN PRN Reason: PAIN - MILD Amphetamine/Dextroamphetamine (Adderall Tab*) 10 mg PO DAILY [facility] Last Admin: 10/03/19 12:10 Dose: 10 mg Aripiprazole (Abilify Tab*) 2 mg PO DAILY [facility] Last Admin: 10/03/19 12:10 Dose: 2 mg Sodium Chloride (Ns 0.9% 1000 Ml) 1,000 mls @ 100 mls/hr IV PER RATE [facility] Piperacillin Sod/Tazobactam (Sod 3.375 gm/ Sodium Chloride) 100 mls @ 25 mls/ hr IVPB Q8H [facility] Last Admin: 10/03/19 05:22 Dose: 25 mls/hr Morphine Sulfate (Morphine Inj (Syringe)*) 4 mg IV Q4H PRN PRN Reason: PAIN - SEVERE Last Admin: 10/03/19 13:11 Dose: 4 mg Ondansetron HCl (Zofran Inj*) 4 mg IV Q4H PRN PRN Reason: NAUSEA/VOMITING Last Admin: 10/03/19 13:11 Dose: 4 mg Sertraline HCl (Zoloft*) 100 mg PO DAILY [facility] Last Admin: 10/03/19 12:10 Dose: 100 mg Trazodone HCl (Desyrel Tab*) 50 mg PO BEDTIME [facility] Last Admin: 10/03/19 02:22 Dose: 50 mg Vital Signs - 8 hr 10/03/19 10/03/19 10/03/19 07:50 08:48 09:50 Temperature 97.8 F Pulse Rate 56 Respiratory 16 16 16 Rate Blood Pressure 98/56 (mmHg) O2 Sat by Pulse 100 Oximetry 10/03/19 10/03/19 10/03/19 09:51 11:45 13:11 Temperature 97.8 F Pulse Rate 50 Respiratory 16 16 16 Rate Blood Pressure 98/42 (mmHg) O2 Sat by Pulse 96 Oximetry 10/03/19 14:48 Temperature Pulse Rate Respiratory 16 Rate Blood Pressure (mmHg) O2 Sat by Pulse Oximetry Oxygen Devices in Use Now: None Appearance: awake, alert no acute issue. stable comforting Eyes: No Scleral Icterus, - - EOMI Ears/Nose/Mouth/Throat: NL Teeth, Lips, Gums, Mucous Membranes Moist Neck: NL Appearance and Movements; NL JVP, Trachea Midline Respiratory: Symmetrical Chest Expansion and Respiratory Effort, Clear to Auscultation Cardiovascular: NL Sounds; No Murmurs; No JVD, No Edema Abdominal: NL Sounds; No Tenderness; No Distention, No Hepatosplenomegaly Skin: No Rash or Ulcers Neurological: Alert and Oriented x 3 Result Diagrams: 10/02/19 16:28 10/02/19 16:28 Additional Lab and Data: Lab Results 10/02/19 10/02/19 Range/Units 15:58 16:28 WBC 8.3 (3.5-10.8) 10^3/uL RBC 3.69 L (3.70-4.87) 10^6 /uL Hgb 11.2 L (12.0-16.0) g/dL Hct 33 L (35-47) % MCV 90 (80-97) fL MCH 30 (27-31) pg MCHC 34 (31-36) g/dL RDW 14 (10-15) % Plt Count 313 (150-450) 10^3/uL MPV 7.3 L (7.4-10.4) fL Neut % (Auto) 73.1 % Lymph % (Auto) 17.4 % [place] % (Auto) 8.3 % Eos % (Auto) 0.7 % Baso % (Auto) 0.5 % Absolute Neuts (auto) 6.0 (1.5-7.7) 10^3/ul Absolute Lymphs (auto) 1.4 (1.0-4.8) 10^3/ul Absolute Monos (auto) 0.7 (0-0.8) 10^3/ul Absolute Eos (auto) 0.1 (0-0.6) 10^3/ul Absolute Basos (auto) 0.0 (0-0.2) 10^3/ul Absolute Nucleated RBC 0.0 10^3/ul Nucleated RBC % 0.1 Urine Color Yellow Urine Appearance Clear Urine pH 7.0 (5-9) Ur Specific [place] 1.012 (1.010-1.030) Urine Protein Negative (Negative) Urine Ketones Negative (Negative) Urine Blood Negative (Negative) Urine Nitrate Negative (Negative) Urine Bilirubin Negative (Negative) Urine Urobilinogen Negative (Negative) Ur Leukocyte Esterase Negative (Negative) Urine Glucose Negative (Negative) Microbiology and Other Data: Microbiology 10/02/19 21:36 Gardnerella DNA Probe - Final Vaginal Negative Gardnerella Negative Mary Kay Assess/Plan/Problems-Billing Assessment: 19 y/o female admitted 2 days after her ER visit for for flank pain diagnosed with UTI discharged with Bactrim, comes in 2 days later with increase abdominal , nausea and vomit - Patient Problems (1) UTI (urinary tract infection) Current Visit: Yes Status: Acute Comment: - On Zosyn for now as she is covered empirically for Cholecystitis. Will down grade to po upon discharge (2) RUQ abdominal pain Current Visit: Yes Status: Acute Code(s): R10.11 - RIGHT UPPER QUADRANT PAIN SNOMED Code(s): 392443415 Comment: - Cholecystitis ruled out - Appreciate input from surgery. HIDA scan negative. US of abdomeon was questionable for acute cholecystitis. - Will advance diet to low fat diet and potentially discharge if she tolerates well (3) Anxiety Current Visit: Yes Status: Acute Code(s): F41.9 - ANXIETY DISORDER, UNSPECIFIED SNOMED Code(s): 73902351 Comment: - Abilify, and zoloft (4) Bradycardia Current Visit: Yes Status: Acute Code(s): R00.1 - BRADYCARDIA, UNSPECIFIED SNOMED Code(s): 69938495 Comment: - assymptomatic - will resume home Ritalin - Check TSH and lytes (5) DVT prophylaxis Current Visit: Yes Status: Acute Code(s): Z29.9 - ENCOUNTER FOR PROPHYLACTIC MEASURES, UNSPECIFIED SNOMED Code(s): 252909321 Comment: - Ambulate
--- NOTE | 2019-10-03 19:04 | PN ---
Progress Note - Progress Note Date of Service: 10/03/19 Note: Surgery Progress: S: Still having right sided pain. Increased nausea after she tried to eat earlier. No vomiting. c/o band-like headache. No flatus or BM since admission. O: Vital Signs - 8 hr 10/03/19 10/03/19 10/03/19 11:45 13:11 14:48 Temperature 97.8 F Pulse Rate 50 Respiratory 16 16 16 Rate Blood Pressure 98/42 (mmHg) O2 Sat by Pulse 96 Oximetry 10/03/19 10/03/19 10/03/19 15:17 17:18 18:34 Temperature 98.4 F Pulse Rate 72 Respiratory 18 16 16 Rate Blood Pressure 107/56 (mmHg) O2 Sat by Pulse 96 Oximetry Intake and Output Last 24 Hours 10/01/19 10/02/19 10/03/19 10/04/19 06:59 06:59 06:59 06:59 Intake Total 1622 0 Balance 1622 0 Weight 113 lb 3.2 oz 113 lb 3.2 oz Intake: IV Fluids 1478 NS 426 IVPB 144 Zosyn 144 Oral 0 0 Other: # Voids 0 Gen: sitting up in bed, appears comfortable, but then anxious when she realizes that I will be examining her abdomen, and in fact then requesting morphine and zofran. Heart: reg Lungs: clear Abd: mild distension/bloating/edema; +BS, though somewhat hypo; soft; mild to moderate tenderness along entire right side of abdomen, most pronounced low on the right as well as in the subcostal region. Some mild firmness to palp, but not well localized. Mild discomfort midepigastrium. Remainder of Left side nontender and minimal tenderness suprapubically. No guarding or rigidity. Labs reviewed. Imaging reviewed, including US (clarified w/ Dr. Garay that the "1.2 cm gallbladder wall thickening" is likely fluid). The HIDA scan is normal ( gallbladder visualizes and the CBD is patent). The non-contrast CT from 09/29 was also reviewed. The appendix appears to be normal. urine C&S: > 100k E coli (vega-sensitive) A: right sided abdominal pain, unlikely to be related to either GB or appendix, but etiology unclear. P: I spoke with patient's mother who expressed that her daughter has had a difficult past couple of years, with multiple problems, including recurrent vomiting, anorexia, recurrent sinusitis, multiple courses of antibiotics, etc. I shared with both of them the results of the imaging (Dr. Garay recommended a repeat US of the Left liver lesion in 3- 6 months). Will repeat labs, including CRP in a.m. and we will continue to follow.
[2019-10-03] MEDS: Acetaminophen TAB* 325 MG PO PRN (19:14)
[2019-10-04] MEDS ORDERED: NS 0.9% 1000 ML** 1,000 ML IV ONE ×2 (01:19→08:35)
[2019-10-04] MEDS: Acetaminophen TAB* 325 MG PO PRN (05:37)
[2019-10-04] MEDS: Piperacillin/Tazobac ADVAN(*) 3.375 GM in NS 0.9% 100 ML* 100 ML IVPB SCH (05:38)
[2019-10-04] MEDS: Ondansetron INJ* 2 MG/ML VIAL IV PRN (05:38)
[2019-10-04] MEDS ORDERED: Ibuprofen TAB* 600 MG PO ONE (05:48)
[2019-10-04 06:45] LABS: ABS Eosinophils 0.1 10^3/ul (0-0.6); ABS Lymphocytes 2.1 10^3/ul (1.0-4.8); ABS Monocytes 0.4 10^3/ul (0-0.8); ABS Neutrophils 2.2 10^3/ul (1.5-7.7); Hematocrit 30 % (35-47); Hemoglobin 10.4 g/dL (12.0-16.0); Lymphocyte % 42.4 %; Mean Corpuscular HGB Conc 35 g/dL (31-36); Mean Corpuscular Hemoglobin 31 pg (27-31); Mean Corpuscular Volume 89 fL (80-97); Mean Platelet Volume 7.7 fL (7.4-10.4); Nucleated Red Blood Cells % 0.1; Platelet Count 266 10^3/uL (150-450); Red Blood Count 3.35 10^6 /uL (3.70-4.87); Red Cell Distribution Width 14 % (10-15)
[2019-10-04 06:48] LABS: Albumin 3.5 g/dL (3.2-5.2); Albumin/Globulin Ratio 1.8 (1-3); BUN/Creatinine Ratio 7.2 (8-20); C Reactive Protein 9.54 mg/L (<8.01); Calcium 8.3 mg/dL (8.6-10.3); EGFR African American 131.2 (>60); EGFR Non-African American 108.5 (>60); Globulin 1.9 g/dL (2-4); Potassium 3.8 mmol/L (3.5-5.0); Total Bilirubin 0.4 mg/dL (0.2-1.0); Total Protein 5.4 g/dL (6.4-8.9)
--- NOTE | 2019-10-04 09:00 | PN ---
Subjective Date of Service: 10/04/19 Interval History: Pt is feeling a little better again today. She did vomit overnight after receiving morphine and zofran. She has been able to eat/drink more. She continues to have RUQ abdominal pain but it is better than before. She does feel very tired today and states she has not been getting much sleep. Objective Active Medications: Acetaminophen (Tylenol Tab*) 650 mg PO Q4H PRN PRN Reason: PAIN - MILD Last Admin: 10/04/19 05:37 Dose: 650 mg Amphetamine/Dextroamphetamine (Adderall Tab*) 10 mg PO DAILY [facility] Last Admin: 10/03/19 12:10 Dose: 10 mg Aripiprazole (Abilify Tab*) 2 mg PO DAILY [facility] Last Admin: 10/03/19 12:10 Dose: 2 mg Sodium Chloride (Ns 0.9% 1000 Ml) 1,000 mls @ 100 mls/hr IV PER RATE [facility] Last Admin: 10/03/19 14:47 Dose: 100 mls/hr Piperacillin Sod/Tazobactam (Sod 3.375 gm/ Sodium Chloride) 100 mls @ 25 mls/ hr IVPB Q8H [facility] Last Admin: 10/04/19 05:38 Dose: 25 mls/hr Sodium Chloride (Ns 0.9% 1000 Ml) 1,000 mls @ 1,000 mls/hr IV ED ONCE ONE Stop: 10/04/19 09:34 Morphine Sulfate (Morphine Inj (Syringe)*) 4 mg IV Q4H PRN PRN Reason: PAIN - SEVERE Last Admin: 10/03/19 21:52 Dose: 4 mg Ondansetron HCl (Zofran Inj*) 4 mg IV Q4H PRN PRN Reason: NAUSEA/VOMITING Last Admin: 10/04/19 05:38 Dose: 4 mg Sertraline HCl (Zoloft*) 100 mg PO DAILY [facility] Last Admin: 10/03/19 12:10 Dose: 100 mg Trazodone HCl (Desyrel Tab*) 50 mg PO BEDTIME [facility] Last Admin: 10/03/19 21:51 Dose: 50 mg Vital Signs - 8 hr 10/04/19 10/04/19 10/04/19 01:15 03:28 08:03 Temperature 98.1 F 97.6 F Pulse Rate 55 62 Respiratory 14 14 Rate Blood Pressure 82/38 112/54 90/38 (mmHg) O2 Sat by Pulse 100 98 Oximetry Oxygen Devices in Use Now: None Appearance: Young thin female lying in bed, NAD Eyes: No Scleral Icterus Ears/Nose/Mouth/Throat: Mucous Membranes Moist Respiratory: Symmetrical Chest Expansion and Respiratory Effort, Clear to Auscultation Cardiovascular: NL Sounds; No Murmurs; No JVD, RRR, No Edema Abdominal: - - BS+ soft, ND, mildly tender throughout Extremities: No Clubbing, Cyanosis Skin: No Nodules or Sclerosis Neurological: Alert and Oriented x 3 Result Diagrams: 10/04/19 05:18 10/04/19 05:18 Additional Lab and Data: Lab Results 10/02/19 10/02/19 Range/Units 15:58 16:28 WBC 8.3 (3.5-10.8) 10^3/uL RBC 3.69 L (3.70-4.87) 10^6 /uL Hgb 11.2 L (12.0-16.0) g/dL Hct 33 L (35-47) % MCV 90 (80-97) fL MCH 30 (27-31) pg MCHC 34 (31-36) g/dL RDW 14 (10-15) % Plt Count 313 (150-450) 10^3/uL MPV 7.3 L (7.4-10.4) fL Neut % (Auto) 73.1 % Lymph % (Auto) 17.4 % [place] % (Auto) 8.3 % Eos % (Auto) 0.7 % Baso % (Auto) 0.5 % Absolute Neuts (auto) 6.0 (1.5-7.7) 10^3/ul Absolute Lymphs (auto) 1.4 (1.0-4.8) 10^3/ul Absolute Monos (auto) 0.7 (0-0.8) 10^3/ul Absolute Eos (auto) 0.1 (0-0.6) 10^3/ul Absolute Basos (auto) 0.0 (0-0.2) 10^3/ul Absolute Nucleated RBC 0.0 10^3/ul Nucleated RBC % 0.1 Urine Color Yellow Urine Appearance Clear Urine pH 7.0 (5-9) Ur Specific [place] 1.012 (1.010-1.030) Urine Protein Negative (Negative) Urine Ketones Negative (Negative) Urine Blood Negative (Negative) Urine Nitrate Negative (Negative) Urine Bilirubin Negative (Negative) Urine Urobilinogen Negative (Negative) Ur Leukocyte Esterase Negative (Negative) Urine Glucose Negative (Negative) Microbiology and Other Data: Microbiology 10/02/19 21:36 Gardnerella DNA Probe - Final Vaginal Negative Gardnerella Negative Mary Kay Assess/Plan/Problems-Billing Miss Anderson is a 19 yo female who was recently treated for a UTI with Bactrim who presented to the ER with increased abdominal pain, nausea and vomiting. - Patient Problems (1) RUQ abdominal pain Current Visit: Yes Status: Acute Code(s): R10.11 - RIGHT UPPER QUADRANT PAIN SNOMED Code(s): 302948880 Comment: Ultimately no evidence of cholecystitis. ? mild pyelonephritis. She is tolerating a low fat diet. She is not requiring any pain medication. She feels well enough to go home. (2) UTI (urinary tract infection) Current Visit: Yes Status: Acute Comment: She has had 4 days of Abx coverage. Will send patient home on cipro for 3 more days in case she developed worsening abdominal pain/vomiting from the bactrim. (3) Anxiety Current Visit: Yes Status: Acute Code(s): F41.9 - ANXIETY DISORDER, UNSPECIFIED SNOMED Code(s): 07740523 Comment: Stable- continue abilify and zoloft (4) Bradycardia Current Visit: Yes Status: Acute Code(s): R00.1 - BRADYCARDIA, UNSPECIFIED SNOMED Code(s): 37842578 Comment: Pt is at baseline mildly bradycardic. She is asymptomatic. (5) DVT prophylaxis Current Visit: Yes Status: Acute Code(s): Z29.9 - ENCOUNTER FOR PROPHYLACTIC MEASURES, UNSPECIFIED SNOMED Code(s): 416110016 Comment: ambulation Status and Disposition: d/c home later today
[2019-10-04] MEDS: ARIPiprazole TAB* 2 MG PO SCH (09:23)
[2019-10-04] MEDS: Amphetamine MIXED SALT TAB* 10 MG TAB PO SCH (09:23)
[2019-10-04] MEDS: Sertraline* 100 MG TAB PO SCH (09:24)
[2019-10-04 14:41] VITALS: BP 105/61
--- NOTE | 2019-10-05 01:03 | DS ---
CC: Dr. Mcallister * DISCHARGE SUMMARY: DATE OF ADMISSION: 10/02/19 DATE OF DISCHARGE: 10/04/19. PRIMARY CARE PROVIDER: Dr. Mcallister. PRINCIPAL DIAGNOSIS: Abdominal pain of unclear etiology. SECONDARY DIAGNOSES: 1. Depression and anxiety. 2. Gastroesophageal reflux disease. 3. Recurrent vomiting. DISCHARGE MEDICATIONS: 1. Sertraline 100 mg p.o. daily. 2. Aldactone 200 mg p.o. daily on hold for one week. 3. Trazodone 50 mg p.o. q.h.s. 4. Abilify 2 mg p.o. daily. 5. Adderall 10 mg p.o. daily. 6. Ativan 0.5 mg p.o. daily p.r.n. anxiety. 7. Cipro 500 mg p.o. b.i.d. x6 doses. HOSPITAL COURSE: Ms. Anderson is a 19-year-old female who was seen at the [facility] for complaints of abdominal pain. There was concern for having a surgical abdomen and she was therefore sent to the emergency room. The patient also had reports of vomiting. Gallbladder ultrasound done on revealed gallbladder wall thickening up to 12 mm. There was pericholecystic fluid noted as well as positive sonographic Ruby sign. The findings were suspicious for acalculous cholecystitis. Additionally there was a slightly echogenic mass lesion in the left lobe of the liver measuring a maximum of 1.5 cm with some internal Doppler flow. This mass was not clearly visible on the prior noncontrast CT and appears indeterminant, it may be more accurately assessed with dedicated CT or MRI liver mass protocol. Now the patient was seen in consultation by General Surgery, it was recommended that she undergo HIDA scan. This was done on 10/03/19 and revealed a patent cystic and common bile duct. General Surgery followed up and did not feel that the patient warranted cholecystectomy. Her pain essentially improved on its own. She was able to eat regular food. The etiology of her pain was not completely clear. A question is that may be she passed a gallbladder stone. Additionally she had been diagnosed with UTI and started on Bactrim. Perhaps there was mild pyelonephritis. Her antibiotic was changed to Zosyn while hospitalized and due to the fact that she was having significant nausea and vomiting that changed from Bactrim to Cipro to see if she tolerated the antibiotic better. Ultimately , the patient is felt to be stable for discharge home. FOLLOWUP CONCERNS: The patient is being discharged home today 10/04/19. ACTIVITY LEVEL: As tolerated. DIET: Low fat. CONDITION ON DISCHARGE: Stable. The patient has been recommended to follow up with Dr. Mcallister in the next 4 to 7 days. It has been recommended to also consider going to her family's home as opposed to back to the [facility] as after spring [employer] is closing and going to [employer]. The patient does state that she does not want to consider this at this time and states that she would cry if that is what she had to do. TIME SPENT: Twenty five minutes was spent discharging this patient. [id number]/CPS #: [id number] TONY
== END 2019-10-04 15:30 | disposition home or self-care (01) | DRG 392 ==
LOC: ED 14:50 → MED 23:57
PROVIDERS: ADMIT Family Medicine; ATTEND Hospitalist
DX: R10.11 Right upper quadrant pain (principal); N39.0 Urinary tract infection, site not specified; F41.8 Other specified anxiety disorders; K21.9 Gastro-esophageal reflux disease without esophagitis; R11.2 Nausea with vomiting, unspecified; R00.1 Bradycardia, unspecified; N83.202 Unspecified ovarian cyst, left side; R16.0 Hepatomegaly, not elsewhere classified; R63.0 Anorexia; Z79.899 Other long term (current) drug therapy; Z68.20 Body mass index [BMI] 20.0-20.9, adult
CPT/HCPCS: 36415; 76705; 76830; 78226; 80053; 81003; 83605; 83690; 83735; 84439; 84443; 84702; 85025; 86140; 87480; 87491; 87510; 87591; 87661; 93005; 96365; 96375; 96376; 99284; A9270-GY; A9537; J0696; J1200; J2270; J2405; J2543